=== PATIENT | male | born 1965 | race Caucasian/White ===

== ENCOUNTER 2024-04-30 01:26 | Emergency (ER) | payer OTHER, SELFPAY ==
[2024-04-30 01:28] VITALS: BP 157/107
[2024-04-30 01:52] VITALS: BP 101/60
[2024-04-30 02:08] LABS: % Basophils 0.3 % (0-2); % Eosinophils 1.2 % (0-6); % Immature Granulocytes 0.3 % (0-0.5); % Lymphocytes 26.3 % (20.5-51.1); % Monocytes 8.7 % (1.7-9.3); % Neutrophils 63.2 % (42.2-75.2); Absolute Eosinophils 0.1 10^3/uL (0-0.7); Absolute Lymphocytes 2.4 10^3/uL (1.2-3.4); Absolute Monocytes 0.8 10^3/uL (0.1-0.6); Absolute Neutrophils 5.7 10^3/uL (1.4-6.5); Hemoglobin 17.4 g/dL (13.0-18.0); Mean Corp Hgb Conc. 36.3 g/dL (33.0-37.0); Mean Corpuscular Hgb 33.2 pg (27.0-31.0); Mean Corpuscular Volume 91.6 fL (80.0-94.0); Mean Platelet Volume 9.6 fL (7.4-10.4); Nucleated Red Blood Cells % 0 % (-); Platelet Count 218 10^3/uL (130-400); Red Blood Cell Count 5.24 10^6/uL (4.70-6.10); Red Cell Dist. Width 11.7 % (11.5-14.5)
[2024-04-30 02:19] LABS: Lactic Acid 1.9 mmol/L (0.7-2.0)
[2024-04-30 02:20] LABS: ALT (SGPT) 167 U/L (0-50); AST (SGOT) 141 U/L (17-59); Albumin 4.6 g/dl (3.5-5.0); Alkaline Phosphatase 132 U/L (38-126); Blood Urea Nitrogen 13 mg/dl (9-20); Calcium 9.3 mg/dl (8.4-10.2); Carbon Dioxide 23 mmol/L (22-30); Chloride 102 mmol/L (98-107); Glucose 141 mg/dl (70-99); Lipase 82 U/L (23-300); Potassium 4.5 mmol/L (3.5-5.1); Sodium 139 mmol/L (135-145); Total Bilirubin 1.2 mg/dl (0.2-1.3); Total Protein 8.1 g/dl (6.3-8.2); eGFR > 60.00
[2024-04-30 02:20] LABS: Urine Albumin Trace (Neg - Trace); Urine Bilirubin 1+ (Negative); Urine Character Clear (Clear); Urine Color Yellow; Urine Glucose Negative (Negative); Urine Ketone 1+ (Negative); Urine Leukocyte Trace (Negative); Urine Nitrite Negative (Negative); Urine Occult Blood Negative (Negative); Urine Specific Gravity 1.025 (<1.030); Urine Urobilinogen 1+ (Neg - 1+)
--- NOTE | 2024-04-30 02:20 | ED.GENMED ---
History of Present Illness
General
Chief Complaint: Abdominal Pain
Source: patient and spouse
Exam Limitations: none
Time Seen by Provider: 04/30/24 02:02
Nursing documentation reviewed up to this point in time: agreed with
History of Present Illness
History of Present Illness:
This is a 58-year-old gentleman with history of GERD, gout who complains of 24-hour history of initially abdominal bloating and mild left upper quadrant soreness. Left upper quadrant pain has gotten progressive throughout the day accompanied with
nausea without vomiting. Left upper quadrant pain radiates to his left lateral to posterior flank region, is much worse with movement, worse with deep breath and worse with cough. He does admit to a chronic cough that is unchanged. No insightful
injury. No diarrhea or constipation, no dysuria urgency or hematuria. No history of similar episodes in the past. He has not taken anything for discomfort.
He did travel by air to [place] and back 1 month ago. No leg pain or swelling.
Lifelong non-smoker.
His only daily medication is omeprazole. He takes Indocin as needed for gout but none recently, takes lorazepam as needed for anxiety.
Past History
Past History
ED Past Medical History: GERD, HTN, Psychiatric (Anxiety) and Other (Gout)
ED Past Surgical History: Appendectomy
Social History
Tobacco: Non-smoker
Alcohol: Occasional
Personal:
Living: with family
Employment: Employed
Family History
Family History: Other (Has a father who had a valve replacement and a grandmother coronary disease)
Phy Exam
Physical Exam
Physical Exam:
GENERAL: 58-year-old overweight gentleman appears his stated age, awake and alert, appears in mild distress intermittently splinting his left upper quadrant more so with attempted movement. Otherwise in no acute distress. Rare dry cough is noted.
Respirations are easy and nonlabored. Low-grade fever is noted.
EYE: pupils equal and reactive. anicteric
NECK: Supple, nontender, no meningismus, no significant adenopathy.
ENT: posterior pharynx is clear, oral mucosa is moist. TM clear b/l, nares patent.
CARDIAC: Regular rhythm, mildly tachycardic. No murmur.
LUNGS: Clear breath sounds bilaterally, no acute respiratory distress, no wheezes/rales/rhonchi. No palpable chest wall tenderness.
ABDOMEN: Rotund, soft, nondistended, moderate tenderness left upper lateral quadrant, no r/g, no cvat. normoactive BS.
NEUROLOGICAL: Alert and oriented x3, no focal neuro deficits. Gait is steady.
SKIN: Warm and dry, normal color, skin intact. No rash.
MUSCULOSKELETAL: No C/C/E. peripheral pulses are full and equal b/l. No palpable tenderness.
PSYCH: Normal and appropriate interaction.
Course
Orders/Labs/Results
Orders:
Orders
04/30/24 01:46
Complete Blood Count/With Diff Urgent
Comprehensive Metabolic Panel Urgent
Lactic Acid Urgent
Lipase Urgent
04/30/24 02:08
Urinalysis Reflex To Culture Urgent
Date Specimen was Collected: 04/30/24
Time Specimen was Collected: 01:35
Urine Microscopic Reflex Cult Urgent
Urine Culture Urgent
MARQUITA Source: U
Specimen Description:
Date Specimen was Collected: 04/30/24
Time Specimen was Collected: 01:35
04/30/24 02:19
0.9% Sodium Chloride 1000 ml [Nss] 1,000 ml IV BOLUS
Acetaminophen [Tylenol] 1,000 mg PO NOW STA
Ketorolac [Toradol] 15 mg IV NOW STA
04/30/24 02:41
COVID-19 Antigen Urgent
Source: Nasal Swab
D-Dimer Urgent
04/30/24 03:38
CT Chest Pe Study Urgent
Comment:
Reason For Exam: pleuritic left lower CP, elevated d-dimer
04/30/24 03:39
CT Abd/pelvis W Iv Cont Urgent
Comment:
Reason For Exam: LUQ pain, fever
04/30/24 05:21
Ketorolac [Toradol] 15 mg IV NOW STA
Abnormal Lab Results
04/30/24 04/30/24 04/30/24
01:46 02:08 02:41
MCH 33.2 H pg
(27.0-31.0)
Absolute Monos (auto) 0.8 H 10^3/uL
(0.1-0.6)
D-Dimer 0.53 H ug/mlFEU
(0.00-0.50)
Glucose 141 H mg/dl
(70-99)
AST 141 H U/L
(17-59)
ALT 167 H U/L
(0-50)
Alkaline Phosphatase 132 H U/L
(38-126)
Urine Ketones 1+ A
(Negative)
Urine Bilirubin 1+ A
(Negative)
Leukocyte Esterase Rfl Trace A
(Negative)
Urine RBC 3-6 A /HPF
(0-2)
Urine Bacteria (Reflex) Moderate A
(Negative)
04/30/24 01:46
04/30/24 01:46
Vital Signs
Initial and Last Documented VS:
Initial Vital Signs
Temp Pulse Resp BP Pulse Ox
100.1 F 117 24 157/107 95
04/30/24 01:28 04/30/24 01:28 04/30/24 01:28 04/30/24 01:28 04/30/24 01:28
Last Documented Vital Signs
Temp Pulse Resp BP Pulse Ox
100.1 F 93 22 144/102 93
04/30/24 01:28 04/30/24 05:15 04/30/24 05:15 04/30/24 05:00 04/30/24 05:15
MDM/Problems Addressed
Differential Diagnosis Includes:
Concern for pneumonia, pleurisy, PE, pyelonephritis, left ureteric stone, diverticulitis.
Labs are pending as is urinalysis. Will add rapid COVID and D-dimer.
Will medicate for pain and fever and initiate IV fluids.
Will plan for imaging depending on results.
*Radiology
Radiology exam reviewed: radiology read reviewed
*Pulse Oximetry
Patient hypoxic: no
*[place] Interpretation
Rate: tachycardiac
Interpretation: abnormal
Rhythm: sinus
*Critical Care Note
Total Time (30-74mins, 75-104mins- exclusive of procedures): Not Applicable
Update Note
Update Note:
04/30/2024 0530 AM
Patient initially much more comfortable after IV dose of Toradol but continues with some pleuritic type left upper quadrant pain, left lateral flank pain.
Labs show normal white blood cell count. Mildly elevated random glucose of 141. Moderately elevated LFTs with similar elevations noted previously. Lipase is normal.
D-dimer minimally elevated at 0.53.
Urinalysis shows moderate bacteria but only 0-2 WBCs, not consistent with UTI. 3-6 RBCs.
Due to mildly elevated D-dimer, pleuritic type left upper quadrant pain must consider PE thus CT of the chest/PE study has been obtained. Due to left upper quadrant pain, microscopic hematuria, concern for ureteric stone, descending colon
diverticulitis thus CT of the abdomen and pelvis performed.
CAT scan fortunately is unremarkable no evidence of PE nor pneumonia. No pneumothorax nor pleural effusion. Dependent atelectasis is noted. Hepatic steatosis, spleen is enlarged, no obstructing renal stone, no bowel obstruction nor
diverticulitis. Abdominal aorta is of normal caliber. He continues to have no back pain.
At this point unclear as to cause for low-grade fever, pleuritic left upper quadrant pain but may be an element of pleurisy, abdominal wall muscle strain.
Recommend a course of NSAIDs, rest, local heat and prompt follow-up with PCP for recheck.
Return precautions discussed.
ED Attending Note
-
Portions of this chart may have been created with voice recognition software.� Occasional wrong word or��sound alike� substitutions may have occurred due to the inherent limitations of voice recognition software.
Discharge Plan
Departure
Patient Disposition: Home (Routine Discharge)
Date of Disposition: 04/30/24
Time of Disposition: 05:33
Patient with high blood pressure during this ER visit?: Yes
Condition: Good
Discharge Problem:
Acute LUQ pain
Instructions: Abdominal Pain, BLOOD PRESSURE
Prescriptions:
New
diclofenac sodium 75 mg tablet,delayed release (DR/EC)
75 mg PO BID PRN (Reason: pain) Qty: 30 0RF
No Action
lorazepam 0.5 MG tablet
0.5 mg PO DAILYPRN PRN (Reason: anxiety)
pantoprazole 40 MG tablet,delayed release (DR/EC)
40 mg PO DAILY
indomethacin 75 MG capsule, extended release
75 mg PO DAILYPRN PRN (Reason: pain)
oxycodone-acetaminophen 5 MG/325 MG tablet
1 tab PO Q4HPRN PRN (Reason: pain not relieved by ibuprofen) Qty: 10 0RF
ibuprofen 200 MG tablet
600 mg PO Q6HPRN PRN (Reason: pain) Qty: 1 0RF
Referrals:
Ronald Michael MD [Family Provider] - Call in 1-3 days for appt
Interventions
Interventions:
*General Assessment Last Done: 04/30/24 03:36
*Neglect/Abuse Screening Last Done: 04/30/24 03:36
ED- Fall Risk Assessment Last Done: 04/30/24 03:36
OJ-Izrcdf-Fnztcjkqhk Assessment Last Done: 04/30/24 02:50
Discharge Date and Time
Print Language: LAO
[2024-04-30 02:31] LABS: Urine Amorphous Seen; Urine Mucus Many
[2024-04-30 02:32] LABS: Urine Bacteria Moderate (Negative); Urine White Cell 0-2 /HPF (0-5)
[2024-04-30] MEDS: TORADOL 15 MG IV ×2 (02:38→05:26)
[2024-04-30] MEDS: NSS 1000 IV (02:38)
[2024-04-30] MEDS: TYLENOL 1000 MG PO (02:39)
[2024-04-30 02:45] VITALS: BP 136/103
[2024-04-30 02:46] VITALS: BMI 34.9
[2024-04-30 03:00] VITALS: BP 129/88
[2024-04-30 03:07] LABS: D-Dimer 0.53 ug/mlFEU (0.00-0.50)
[2024-04-30 03:14] LABS: COVID-19 Antigen Negative (Negative)
[2024-04-30 05:00] VITALS: BP 144/102
== END 2024-04-30 05:41 | disposition home or self-care (01) ==
LOC: EMR 01:26
PROVIDERS: EMERGENCY PHYSICIAN Emergency Medicine; FAMILY PHYSICIAN Family Medicine
DX: R10.12 Left upper quadrant pain (principal); R79.1 Abnormal coagulation profile; R16.1 Splenomegaly, not elsewhere classified; I10 Essential (primary) hypertension; K76.0 Fatty (change of) liver, not elsewhere classified; K21.9 Gastro-esophageal reflux disease without esophagitis; Z90.49 Acquired absence of other specified parts of digestive tract
CPT/HCPCS: 99284; 96374; 96376; 96361 ×3; 71275; 74177; 80053; 81003; 81015; 83605; 83690; 85025; 85379; 87086; 87811; Q9967

== ENCOUNTER 2024-08-11 22:16 | Emergency (ER) | payer OTHER, SELFPAY ==
[2024-08-11 22:21] VITALS: BP 182/109
[2024-08-11 22:34] LABS: % Basophils 0.6 % (0-2); % Immature Granulocytes 0.4 % (0-0.5); % Lymphocytes 18.6 % (20.5-51.1); % Monocytes 14.2 % (1.7-9.3); % Neutrophils 65.2 % (42.2-75.2); Absolute Eosinophils 0.1 10^3/uL (0-0.7); Absolute Lymphocytes 1.3 10^3/uL (1.2-3.4); Absolute Neutrophils 4.5 10^3/uL (1.4-6.5); Hemoglobin 16.3 g/dL (13.0-18.0); Mean Corp Hgb Conc. 34.7 g/dL (33.0-37.0); Mean Corpuscular Hgb 32.3 pg (27.0-31.0); Mean Corpuscular Volume 93.1 fL (80.0-94.0); Mean Platelet Volume 8.9 fL (7.4-10.4); Nucleated Red Blood Cells % 0 % (-); Platelet Count 175 10^3/uL (130-400); Red Blood Cell Count 5.05 10^6/uL (4.70-6.10); Red Cell Dist. Width 11.9 % (11.5-14.5); White Blood Cell Count 6.9 10^3/uL (4.8-10.8)
[2024-08-11 22:57] LABS: ALT (SGPT) 151 U/L (0-50); AST (SGOT) 134 U/L (17-59); Albumin 4.6 g/dl (3.5-5.0); Alkaline Phosphatase 105 U/L (38-126); Blood Urea Nitrogen 13 mg/dl (9-20); Calcium 9.2 mg/dl (8.4-10.2); Carbon Dioxide 27 mmol/L (22-30); Chloride 100 mmol/L (98-107); Glucose 121 mg/dl (70-99); Potassium 4.8 mmol/L (3.5-5.1); Sodium 139 mmol/L (135-145); Total Bilirubin 1.1 mg/dl (0.2-1.3); Total Protein 8.2 g/dl (6.3-8.2); eGFR > 60.00
[2024-08-12 00:40] VITALS: BMI 34.8
[2024-08-12 01:48] VITALS: BP 153/92
[2024-08-12] MEDS: NSS 500 IV (02:12)
[2024-08-12] MEDS: TORADOL 15 MG IV (02:14)
[2024-08-12] MEDS: DECADRON 10 MG IV (02:14)
--- NOTE | 2024-08-12 02:22 | ED.GENMED ---
History of Present Illness
<Armando Young MD - Last Filed: 08/12/24 03:55>
General
Chief Complaint: Back Pain
Source: patient
Exam Limitations: none
Time Seen by Provider: 08/12/24 01:14
Nursing documentation reviewed up to this point in time: agreed with
History of Present Illness
History of Present Illness:
Patient who tested positive for COVID-19 3 days ago, presents ED secondary to continual cough, low-grade fever, and decreased appetite, along with mid back pain over the past 2 days. Patient states that he has similar chest pain in the past with
viral upper respiratory infection and was told that his symptoms are secondary to pleurisy. Denies headache. Denies dizziness. Denies sore throat. Denies chest pain. Denies shortness of breath. Denies leg pain or swelling. Denies recent
travel or surgery. Denies previous history of blood clots.
Past History
<Armando Young MD - Last Filed: 08/12/24 03:55>
Past History
ED Past Medical History: GERD, HTN, Psychiatric (Anxiety) and Other (Gout)
ED Past Surgical History: Appendectomy
Social History
Tobacco: Non-smoker
Alcohol: Occasional
Personal:
Living: with family
Employment: Employed
Family History
Family History: Other (Has a father who had a valve replacement and a grandmother coronary disease)
Review of Systems
<Armando Young MD - Last Filed: 08/12/24 03:55>
Review of Systems
Allergies reviewed?: Yes
All Other Systems: ROS reviewed and negative except as documented in HPI and ROS
Constitutional: Reports no symptoms
Respiratory: Reports cough; Denies trouble breathing
Cardiac: Reports no symptoms; Denies chest pain
ABD/GI: Reports no symptoms
Musculoskeletal: Reports back pain
Skin: Reports no symptoms
Neurological: Reports no symptoms
Phy Exam
<Armando Young MD - Last Filed: 08/12/24 03:55>
Physical Exam
Physical Exam:
Physical Exam
General: no apparent distress, not acutely ill. afebrile
Head: nc/at. eomi
Neck: supple. no meningeal signs.
Heart: s1/s2 regular rate and rhythm, no murmur. equal radial pulses.
Lungs: no acute respiratory distress. clear bilaterally
Abdomen: normal bowel sounds. not tender.
Back: no midline tenderness. no ecchymosis/erythema noted over midback.
Neuro: alert and oriented. no focal neurological deficits
Skin: no rash
Psychiatric: well kept. interactive and cooperative
Extremities: no edema. no calf tenderness.
Course
<Armando Young MD - Last Filed: 08/12/24 03:55>
Orders/Labs/Results
Orders:
Orders
08/11/24 22:28
Complete Blood Count/With Diff Urgent
Comprehensive Metabolic Panel Urgent
08/12/24 02:01
CR Chest - 2 Views Urgent
Comment: Positive COVID
Reason For Exam: cough/back pain
08/12/24 02:02
Dexamethasone Sod Phosphate [Decadron] 10 mg IV NOW STA
Ketorolac [Toradol] 15 mg IV NOW STA
08/12/24 02:03
0.9% Sodium Chloride 500 ml [Nss] 500 ml IV BOLUS
08/12/24 02:12
D-Dimer Urgent
08/12/24 03:35
CT Chest Pe Study Urgent
Comment:
Reason For Exam: midback pain with recent covid infection
Abnormal Lab Results
08/11/24 08/12/24
22:28 02:12
MCH 32.3 H pg
(27.0-31.0)
Absolute Monos (auto) 1.0 H 10^3/uL
(0.1-0.6)
Lymphocytes % 18.6 L %
(20.5-51.1)
Monocytes % 14.2 H %
(1.7-9.3)
D-Dimer 0.91 H ug/mlFEU
(0.00-0.50)
Glucose 121 H mg/dl
(70-99)
AST 134 H U/L
(17-59)
ALT 151 H U/L
(0-50)
08/11/24 22:28
08/11/24 22:28
Vital Signs
Initial and Last Documented VS:
Initial Vital Signs
Temp Pulse Resp BP Pulse Ox
99.5 F 88 16 182/109 99
08/11/24 22:21 08/11/24 22:21 08/11/24 22:21 08/11/24 22:21 08/11/24 22:21
Last Documented Vital Signs
Temp Pulse Resp BP Pulse Ox
98.2 F 92 20 148/86 99
08/12/24 01:50 08/12/24 05:08 08/12/24 05:08 08/12/24 05:08 08/12/24 05:08
<Teddy Rossi, DO - Last Filed: 08/12/24 08:20>
Orders/Labs/Results
Orders:
Orders
08/11/24 22:28
Complete Blood Count/With Diff Urgent
Comprehensive Metabolic Panel Urgent
08/12/24 02:01
CR Chest - 2 Views Urgent
Comment: Positive COVID
Reason For Exam: cough/back pain
08/12/24 02:02
Dexamethasone Sod Phosphate [Decadron] 10 mg IV NOW STA
Ketorolac [Toradol] 15 mg IV NOW STA
08/12/24 02:03
0.9% Sodium Chloride 500 ml [Nss] 500 ml IV BOLUS
08/12/24 02:12
D-Dimer Urgent
08/12/24 03:35
CT Chest Pe Study Urgent
Comment:
Reason For Exam: midback pain with recent covid infection
Abnormal Lab Results
08/11/24 08/12/24
22:28 02:12
MCH 32.3 H pg
(27.0-31.0)
Absolute Monos (auto) 1.0 H 10^3/uL
(0.1-0.6)
Lymphocytes % 18.6 L %
(20.5-51.1)
Monocytes % 14.2 H %
(1.7-9.3)
D-Dimer 0.91 H ug/mlFEU
(0.00-0.50)
Glucose 121 H mg/dl
(70-99)
AST 134 H U/L
(17-59)
ALT 151 H U/L
(0-50)
08/11/24 22:28
08/11/24 22:28
Vital Signs
Initial and Last Documented VS:
Initial Vital Signs
Temp Pulse Resp BP Pulse Ox
99.5 F 88 16 182/109 99
08/11/24 22:21 08/11/24 22:21 08/11/24 22:21 08/11/24 22:21 08/11/24 22:21
Last Documented Vital Signs
Temp Pulse Resp BP Pulse Ox
98.2 F 92 20 148/86 99
08/12/24 01:50 08/12/24 05:08 08/12/24 05:08 08/12/24 05:08 08/12/24 05:08
<Armando Young MD - Last Filed: 08/12/24 03:55>
MDM/Problems Addressed
MDM/Problems Addressed:
Patient reports mild improvement symptoms after treatment.
D-dimer elevated. As such, we will order CTA PE study. If negative, patient will be discharged home with expected follow-up as an outpatient with primary care physician, along with continual use of NSAIDs.
<Teddy Rossi DO - Last Filed: 08/12/24 08:20>
*Critical Care Note
Total Time (30-74mins, 75-104mins- exclusive of procedures): Not Applicable
<Teddy Rossi DO - Last Filed: 08/12/24 08:20>
Update Note
Update Note:
CTA CHEST
IMPRESSION:
1. Adequate technical study. No acute pulmonary embolism.
2. No thoracic aortic aneurysm or acute aortic dissection. Bibasilar atelectasis
Incidentals:
- No acute osseous abnormality.
- No acute abnormality within the visualized abdomen.
- No thoracic lymphadenopathy or suspicious lymph nodes.
ED Attending Note
<Armando Young MD - Last Filed: 08/12/24 03:55>
-
Portions of this chart may have been created with voice recognition software.� Occasional wrong word or��sound alike� substitutions may have occurred due to the inherent limitations of voice recognition software.
Discharge Plan
Departure
Patient Disposition: Home (Routine Discharge)
Date of Disposition: 08/12/24
Time of Disposition: 04:40
Patient with high blood pressure during this ER visit?: Yes
Condition: Good
Discharge Problem:
COVID-19, Back pain
Instructions: COVID-19 ED, Back Pain
Prescriptions:
New
oxycodone-acetaminophen [Percocet] 5-325 mg tablet
1 tab PO Q6HPRN PRN (Reason: pain) Qty: 10 0RF
No Action
diclofenac sodium 75 mg tablet,delayed release (DR/EC)
75 mg PO BID PRN (Reason: pain) Qty: 30 0RF
Referrals:
Ronald Michael MD [Family Provider] -
Activity Restrictions/Additional Instructions:
As discussed, please follow-up with your primary care physician with any further concerns. In ED, x-ray did suggest potential pneumonia on the right side of your lung, which is likely secondary to ongoing COVID infection. Therefore, there is no
indication for antibiotic treatment.
Interventions
Interventions:
*Risk Screen - Suicide Last Done: 08/12/24 05:08
*General Assessment Last Done: 08/11/24 22:21
*Neglect/Abuse Screening Last Done: 08/11/24 22:21
ED- Fall Risk Assessment Last Done: 08/12/24 00:50
*ED COVID-19 Vaccine History Last Done: 08/11/24 22:21
*Nursing Disposition Last Done: 08/12/24 05:08
ED-Musculoskeletal Assessment Last Done: 08/12/24 00:50
Discharge Date and Time
Discharge Date/Time: 08/12/24 05:00
Print Language: [id number]
[2024-08-12 03:29] LABS: D-Dimer 0.91 ug/mlFEU (0.00-0.50)
[2024-08-12 05:08] VITALS: BP 148/86
== END 2024-08-12 05:00 | disposition home or self-care (01) ==
LOC: EMR 22:16
PROVIDERS: EMERGENCY PHYSICIAN Emergency Medicine; FAMILY PHYSICIAN Family Medicine
DX: U07.1 COVID-19 (principal); M54.9 Dorsalgia, unspecified; I10 Essential (primary) hypertension
CPT/HCPCS: 99285; 96374; 96375; 96361; 71046; 71275; 80053; 85025; 85379; Q9967

== ENCOUNTER → 2024-08-29 10:18 | Outpatient (REF) | payer OTHER, SELFPAY ==
[2024-08-29 10:54] LABS: ALT (SGPT) 159 U/L (0-50); AST (SGOT) 117 U/L (17-59); Albumin 4.1 g/dl (3.5-5.0); Alkaline Phosphatase 91 U/L (38-126); Blood Urea Nitrogen 23 mg/dl (9-20); Carbon Dioxide 29 mmol/L (22-30); Chloride 98 mmol/L (98-107); Glucose 122 mg/dl (70-99); HDL Cholesterol 44 mg/dl; LDL Cholesterol, Calculated 133 mg/dl; Sodium 135 mmol/L (135-145); Total Bilirubin 1.8 mg/dl (0.2-1.3); Total Cholesterol 211 mg/dl (50-199); Total Protein 7.4 g/dl (6.3-8.2); Triglyceride 173 mg/dl (10-149); Very Low Density Lipoprotein 34 mg/dl (0-30); eGFR > 60.00
[2024-08-29 11:24] LABS: PSA, Total - Screen 1.17 ng/ml (0.0-4.0)
== END ==
LOC: REG 10:18
PROVIDERS: ATTENDING PHYSICIAN Family Medicine
DX: M10.9 Gout, unspecified (principal); I10 Essential (primary) hypertension; K74.00 Hepatic fibrosis, unspecified; K21.9 Gastro-esophageal reflux disease without esophagitis; Z12.5 Encounter for screening for malignant neoplasm of prostate
CPT/HCPCS: 36415; 80053; 80061; 84550; G0103